=== PATIENT | male | born 1945 | race Two or more races ===

== ENCOUNTER 2017-05-25 05:00 | Day surgery (SDC) | payer OTHER ==
[~2017-05-25 05:00] MED LIST: AMBIEN CR12.5 MG/BL; AMLODIPINE BESYL5 MG PO; ASA81 MG; AVAPRO75 MG; CATAFLAM50 MG PO; CEFADROXIL500 MG PO; CIPROFLOXACIN750 MG PO; CLONAZEPAM1 MG PO; DOCUSATE SODIU100 MG PO; GABAPENTIN800 MG PO; LEVAQUIN500 MG PO; NEURONTIN800 MG; PERCOCET 5/3251 TAB PO
== END 2017-05-25 08:50 | disposition home or self-care (01) ==
LOC: AMB-ENDOS 05:00
DX: K64.1 Second degree hemorrhoids (principal); I12.9 Hypertensive chronic kidney disease with stage 1 through stage 4 chronic kidney disease, or unspecified chronic kidney disease; N18.9 Chronic kidney disease, unspecified; N17.8 Other acute kidney failure; E13.42 Other specified diabetes mellitus with diabetic polyneuropathy; E86.0 Dehydration; A09 Infectious gastroenteritis and colitis, unspecified; N41.0 Acute prostatitis; B96.89 Other specified bacterial agents as the cause of diseases classified elsewhere; M48.061 Spinal stenosis, lumbar region without neurogenic claudication; M51.26 Other intervertebral disc displacement, lumbar region; Z85.038 Personal history of other malignant neoplasm of large intestine

== ENCOUNTER 2017-05-29 11:25 | Inpatient (IN) | payer OTHER ==
[~2017-05-29] VITALS: Ht 170.2 cm; Wt 62.1 kg
[2017-07-09] MEDS ORDERED: [UNRECOGNIZED DRUG - OTHER] (09:29)
[2017-07-09] MEDS ORDERED: AMARY (09:30)
[2017-07-09] MEDS ORDERED: ARICEPT5 MG PO (09:32)
[2017-07-09] MEDS ORDERED: AMBIEN10 MG PO (09:32)
[2017-07-09] MEDS ORDERED: MELATONIN5 M2 PO (09:32)
[2017-07-17] MEDS ORDERED: DOCUSATE SODIU100 MG PO (09:19)
[2017-07-17] MEDS ORDERED: PERCOCET 5-3251 EACH PO (09:20)
[2017-07-17] MEDS ORDERED: CLONAZEPAM1 MG PO (09:20)
== END 2017-07-17 13:40 | disposition home or self-care (01) | DRG 454 ==
LOC: PED 07-16 04:30 → O/R 07-16 04:30 → SURG 07-16 09:00 → PED 07-16 13:17
PROVIDERS: Orthopaedic Surgery Orthopaedic Surgery of the Spine
PROC: 0RG2071 Fusion of 2 or more Cervical Vertebral Joints with Autologous Tissue Substitute, Posterior Approach, Posterior Column, Open Approach (ICD-10-PCS; 2017-07-16)
PROC: 0RT30ZZ Resection of Cervical Vertebral Disc, Open Approach (ICD-10-PCS; 2017-07-16)
PROC: 07DS3ZZ Extraction of Vertebral Bone Marrow, Percutaneous Approach (ICD-10-PCS; 2017-07-16)
PROC: 0RG20A0 Fusion of 2 or more Cervical Vertebral Joints with Interbody Fusion Device, Anterior Approach, Anterior Column, Open Approach (ICD-10-PCS; principal; 2017-07-16 10:45)
DX: M50.01 Cervical disc disorder with myelopathy, high cervical region (principal); M47.12 Other spondylosis with myelopathy, cervical region; I10 Essential (primary) hypertension; E11.42 Type 2 diabetes mellitus with diabetic polyneuropathy

== ENCOUNTER 2018-05-30 10:44 | Outpatient (CLI) | payer OTHER ==
[~2018-05-30 10:44] MED LIST changes: +AMARY; +AMBIEN10 MG PO; +ARICEPT5 MG PO; +MELATONIN5 M2 PO; +PERCOCET 5-3251 EACH PO; +[UNRECOGNIZED DRUG - OTHER]
== END 2018-05-30 10:52 | disposition home or self-care (01) ==
LOC: RAD 10:44
DX: M48.061 Spinal stenosis, lumbar region without neurogenic claudication (principal); M50.00 Cervical disc disorder with myelopathy, unspecified cervical region; Z98.1 Arthrodesis status

== ENCOUNTER 2018-09-20 07:20 | Day surgery (SDC) | payer OTHER | END 2018-09-20 13:20 | disposition home or self-care (01) | LOC: AMB-ENDOS 07:20 | DX: K64.1 Second degree hemorrhoids (principal) ==

== ENCOUNTER 2018-10-11 13:42 | Outpatient (CLI) | payer OTHER | END 2018-10-11 13:45 | disposition home or self-care (01) | LOC: SONOGRAMA 13:42 | DX: N40.0 Benign prostatic hyperplasia without lower urinary tract symptoms (principal) ==

== ENCOUNTER 2018-10-11 14:02 | Outpatient (CLI) | payer OTHER | END 2018-10-11 15:39 | disposition home or self-care (01) | LOC: SONOGRAMA 14:02 | DX: N40.0 Benign prostatic hyperplasia without lower urinary tract symptoms (principal) ==

== ENCOUNTER 2018-11-04 07:19 | Outpatient (CLI) | payer OTHER | END 2018-11-04 07:20 | disposition home or self-care (01) | LOC: NUCLEAR 07:19 | DX: E05.00 Thyrotoxicosis with diffuse goiter without thyrotoxic crisis or storm (principal) | CPT/HCPCS: 78012; A9531 ==

== ENCOUNTER 2024-03-05 14:39 | Inpatient (IN) | payer OTHER ==
[~2024-03-05] VITALS: Ht 167.6 cm; Wt 129.7 kg
[2024-03-05] MEDS ORDERED: LevETIRAcetam 500 MG/5 ML VIAL IV ONE (15:00)
[2024-03-05] MEDS ORDERED: 0.9 % SODIUM CHLORIDE 1,000 ML IV SCH ×2 (15:00→19:15)
--- NOTE | 2024-03-05 15:02 | NUR ---
PTE ALERTA Y ORIENTADO X3 EN COMPANIA DE ESPOSA Y MD BARRETT. MD REFIERE PTE ESTAR EN CARLO DE SEGUIMIENTO CUANDO EL MISMO COMENZO A CONVULSAR. SE UBICA PTE EN CRITICO CONECTADO A MONITOR CARDIACO Y OXIMETRIA CONTINUA. SE CANALIZA VENA X2 CON ANGIOS #18 Y #20 AMBOS PATENTES. SE REALIZA EKG Y SE PRESENTA A MD CHAUDHARI. SE KIM[facility]LY [facility] POR ORDEN MEDICA
[2024-03-05 15:21] LABS: HEMATOCRIT 31.9 % (39.0-48.0); HEMOGLOBIN 10.6 g/dL (13-16.00); MEAN CELL VOLUME 89.8 fL (80.0-100.00); MEAN CORPUSCULAR HEMOGLOBIN 29.9 pg (27.00-32.0); MEAN CORPUSCULAR HGB CONC 33.3 g/dl (32.0-36.0); PLATELET COUNT 193 K/uL (150-450); RED BLOOD COUNT 3.56 M/uL (4.00-6.00); RED CELL DISTRIBUTION WIDTH 15.5 % (11.5-14.5)
--- NOTE | 2024-03-05 15:25 | NUR ---
SE EDUCA A PTE SOBRE TX MEDICO, SE KIMBER[facility] DE [facility]ATORIO UTILIZANDO MEDIDAS ASEPTICAS. SE COLOCA H/L FAITH DE EDEMA. SE ADMINISTRAN MEDICAMENTOS ALYSSIA ORDEN MEDICA. SE NOTIFICA ESTUDIO DE RX Y MRI PENDIENTES A REALIZAR. PTE SE CONTINUA MONITORIANDO POR CAMBIOS.
[2024-03-05 15:37] LABS: INR 1.05; PROTHROMBIN TIME 11.4 SECONDS (9.0-11.5)
[2024-03-05 15:42] LABS: PARTIAL THROMBOPLASTIN TIME < 20.0 SECONDS (22.0-34.0)
[2024-03-05 15:44] LABS: ALBUMIN 3.6 gm/dL (3.4-5.0); BILIRUBIN TOTAL 0.52 mg/dL (0.3-1.2); CALCIUM 9.3 mg/dL (8.5-10.1); CREATININE SERUM 2.42 mg/dL (0.70-1.30); GFR 25.93; GLOBULINA 3.6 G/DL (2.4-3.5); POTASSIUM 4.47 mEq/L (3.5-5.1); TOTAL PROTEIN 7.2 gm/dL (6.4-8.2)
[2024-03-05 20:03] LABS: ABG PH 7.389 (7.35-7.45); ABG PO2 100.5 mmHg (80-100); ABG pCO2 32.9 mmHg (35-45); BASE EXCESS -4.5 mmol/l; BICARBONATE 19.4 mmol/l (23-25); SaO2 97.6 %; Tco2 20.4 mmol/l; allen test SATISFACTORY; o2 21 %; puncture site RADIAL RIGHT
[2024-03-05] MEDS ORDERED: DONEPEZIL HCL 10 MG TABLET PO SCH (21:00)
[2024-03-05] MEDS ORDERED: LevETIRAcetam 500 MG/5 ML VIAL IV SCH (21:00)
[2024-03-05] MEDS ORDERED: TAMSULOSIN HCL 0.4 MG CAP PO SCH (21:00)
[2024-03-05] MEDS ORDERED: GABAPENTIN 800 MG TABLET PO SCH (21:00)
[2024-03-05 21:39] VITALS: BP 140/68; O2SAT 99
[2024-03-06 00:30] VITALS: BP 112/61; O2SAT 100
[2024-03-06 07:21] LABS: HEMATOCRIT 29.6 % (39.0-48.0); MEAN CELL VOLUME 89.9 fL (80.0-100.00); MEAN CORPUSCULAR HEMOGLOBIN 30.5 pg (27.00-32.0); MEAN CORPUSCULAR HGB CONC 33.9 g/dl (32.0-36.0); PLATELET COUNT 133 K/uL (150-450); RED BLOOD COUNT 3.29 M/uL (4.00-6.00); RED CELL DISTRIBUTION WIDTH 15.1 % (11.5-14.5)
[2024-03-06 07:32] LABS: ERYTHROCYTE SEDIMENTATION RATE 10 mm/hr
[2024-03-06 08:23] LABS: ALBUMIN 3.1 gm/dL (3.4-5.0); BILIRUBIN TOTAL 0.47 mg/dL (0.3-1.2); CALCIUM 8.9 mg/dL (8.5-10.1); CREATININE SERUM 1.86 mg/dL (0.70-1.30); GFR 35.13; GLOBULINA 2.7 G/DL (2.4-3.5); MAGNESIUM 2.1 mg/dL (1.8-2.4); PHOSPHOROUS 3.3 mg/dL (2.5-4.9); POTASSIUM 5.37 mEq/L (3.5-5.1); TOTAL PROTEIN 5.8 gm/dL (6.4-8.2); TSH 0.668 uIU/mL (0.358-3.74)
[2024-03-06 08:32] LABS: C-REACTIVE PROTEIN 2.53 MG/DL (0.00-0.29)
[2024-03-06] MEDS ORDERED: IRBESARTAN 150 MG TABLET PO SCH (09:00)
[2024-03-06] MEDS ORDERED: ASPIRIN 81 MG TAB.CHEW PO SCH (09:00)
[2024-03-06] MEDS ORDERED: Duloxetine HCl 30 MG CAPSULE.DR PO SCH (09:00)
[2024-03-06] MEDS ORDERED: MEMANTINE HCL 5 MG TABLET PO SCH (09:00)
[2024-03-06] MEDS ORDERED: INSULIN LISPRO 1,000 UNIT/10 ML UNITS SUBCUTANEO PRN (14:15)
[2024-03-06] MEDS ORDERED: DEXTROSE 50 % IN WATER 0.5 G/ML DISP.SYRIN IV PRN (14:15)
[2024-03-06 16:28] VITALS: BP 135/73; O2SAT 100
[2024-03-06 16:31] LABS: PH,URINE 5.5 (5.0-8.0); URINE APPEARANCE Clear; URINE BILIRRUBIN Negative (NEGATIVE); URINE BLOOD Negative; URINE COLOR Yellow; URINE GLUCOSE Negative (NEGATIVE); URINE KETONE Negative (NEGATIVE); URINE LEUKOCYTE Negative; URINE NITRATE Negative; URINE PROTEIN Negative (NEGATIVE); URINE UROBILINOGEN 0.2 E.U./dl
[2024-03-06 16:32] LABS: URINE BACTERIA 17.1 uL (0.0-1933); URINE CAST 1.47 uL (0.0-1.40); URINE EPITHELIAL CELLS 4.2 uL (0.0-38.8); URINE RBC 2.9 uL (0.0-20.8); URINE WBC 6.1 uL (0.0-23.2)
[2024-03-06 22:08] VITALS: BP 137/76; O2SAT 100
[2024-03-07 02:47] VITALS: BP 145/89; O2SAT 100
[2024-03-07 08:25] VITALS: BP 146/67; O2SAT 99
[2024-03-07] MEDS ORDERED: Cyanocobalamin/Mecobalamin 1 TAB.SL SL SCH (09:00)
[2024-03-07] MEDS ORDERED: IRON FUM,PS/FOLIC ACID/VITC/B3 1 CAP CAPSULE PO SCH (09:00)
[2024-03-07 12:36] LABS: CALCIUM 8.6 mg/dL (8.5-10.1); CREATININE SERUM 1.57 mg/dL (0.70-1.30); GFR 42.72; POTASSIUM 5.12 mEq/L (3.5-5.1)
[2024-03-07] MEDS ORDERED: TAMS0.4C PO (13:04)
[2024-03-07] MEDS ORDERED: CYMBALTA30 MG PO (13:04)
[2024-03-07] MEDS ORDERED: AVAPRO150 MG PO (13:04)
[2024-03-07] MEDS ORDERED: INTEGRA F CAPS1 EACH PO (13:04)
[2024-03-07] MEDS ORDERED: SPRITAM500 MG PO (13:04)
[2024-03-07] MEDS ORDERED: GABAPENTIN800 MG PO (13:04)
[2024-03-07] MEDS ORDERED: MEMANTINE HCL5 MG PO (13:04)
[2024-03-07] MEDS ORDERED: ARICEPT10 MG PO (13:04)
[2024-03-07] MEDS ORDERED: ASA81 MG PO (13:04)
== END 2024-03-07 18:59 | disposition home or self-care (01) | DRG 101 ==
LOC: ER 14:39 → SEC-K 20:16 → MEDJ 03-06 16:11
PROVIDERS: General Practice; ADMIT Internal Medicine Geriatric Medicine; ATTEND Internal Medicine Geriatric Medicine
PROC: BW28ZZZ Computerized Tomography (CT Scan) of Head (ICD-10-PCS; principal; 2024-03-05)
PROC: B345ZZZ Ultrasonography of Bilateral Common Carotid Arteries (ICD-10-PCS; 2024-03-05)
PROC: B246ZZZ Ultrasonography of Right and Left Heart (ICD-10-PCS; 2024-03-05)
DX: G40.89 Other seizures (principal); I10 Essential (primary) hypertension; E11.9 Type 2 diabetes mellitus without complications; Z79.4 Long term (current) use of insulin; F01.50 Vascular dementia, unspecified severity, without behavioral disturbance, psychotic disturbance, mood disturbance, and anxiety